=== PATIENT | female | born 1950 | race Native Hawaiian/Other Pacific Islander ===

== ENCOUNTER 2024-07-09 09:15 | Outpatient (AMB) | payer MEDICARE, SELFPAY ==
--- NOTE | 2024-07-09 09:22 | A.OFFVIS_ITS ---
Vital Signs 07/09/24 09:27 Height 5 ft Weight 119 lb BMI 23.2 BP 149/69 H Blood Pressure Location Rt brachial Position Sitting Pulse 88 Pulse Source Pulse Oximeter Pulse Oximetry (%) 97 Oxygen Delivery Method Room Air Intake Visit Reasons: Chronic left-sided low back pain/natasha from 06/25 Intake Note: Pain today 12/23 Critical Care Registered Nurse Required: No Accompanied by: Daughter Allergies latex Allergy (Unknown, Verified 07/09/24 09:27) Rash HPI Comments Details: Neha Ford (Riki) is very pleasant 73 years old female who presents in my office with complains on pain in lower back with radiation down to the left lower extremity. She reports that pain is aggravated by standing and alleviated by sitting and laying down. She reports that the pain started in October of 2023. She denies inciting events. She can sleep normally she can do activities of daily living, she can take care of herself and she can function normally. She is retired individual. Heat applications and movements aggravate her pain. Topical medications and oral medications make her pain better. The pain is most severe in the morning and at night. She reports that when she gets up from the bed she feels severe pain in the leg and unable to support her weight on the left lower extremity. In terms of tissue damage he reports her pain as pulsing, throbbing, pounding. She had 12 sessions of physical therapy in [place], [place] she continues home exercise program. She reports minimal and short-lived pain from physical therapy. She also has massage it local [place] with minimal improvement. She is taking Tylenol 1300 mg in the a.m. and p.m., she takes [facility] lidocaine as needed. She had MRI of the lumbar spine results of which dictated as below. She never had any injections. Her past medical history significant for hypertension and type 2 diabetes. Her past surgical history significant for cataract surgery. She is retired individual she denies smoking cigarettes does not drink alcohol drinks coffee and she denies recreational drugs. Review of Systems Const Reports no additional complaints Eyes Reports no additional complaints ENT Reports Normal hearing present Card Reports no additional complaints Resp Reports no additional complaints GI Reports no additional complaints Reports no additional complaints Musc Reports as per HPI Neuro Reports Normal hearing present, Denies Abnormal speech present and Denies Sensory deficit (Neuro) Physical Exam Vital Signs: Last Vital Signs Pulse 88 07/09/24 09:27 BP 149/69 H 07/09/24 09:27 Pulse Ox 97 07/09/24 09:27 Oxygen Delivery Method Room Air 07/09/24 09:27 BMI result Body Mass Index 23.2 Const General: no acute distress Nutritional Appearance: thin Orientation/consciousness: patient oriented x3 Limitations: no limitations Eyes General: appearance normal, both eyes and all related structures Pupils: Equal, round and reactive pupils present EOM: EOMs intact bilaterally Neck Neck: Yes full ROM Chest Chest palpation & inspection: normal inspection of the chest Resp Effort & Inspection: normal respiratory effort, able to speak in complete sentences, normal respiratory pattern, no audible wheezes and no cough Cardio Jugular venous distension: no JVD GI Inspection: Yes normal to inspection Back/Spine/Pelvis Other: She is able to stand on bilateral tiptoes and bilateral heels however she is not able to lift the large toe bilaterally in separation from the rest of the toes. Flexing forward and flexing backwards equally aggravate her pain. Sitting alleviate her pain. Valsalva maneuver aggravates her pain. SLR is positive bilaterally,Lassegue test is positive on the left. Alfredo test is negative bilaterally. Pelvic compression test is negative bilaterally. Loading test is positive bilaterally more significantly on the left. Neuro General: patient oriented x3 and gait normal Cranial nerves: Yes CN's II-XII intact bilaterally, Yes Equal, round and r eactive pupils present, Yes Normal hearing present and Yes Ability to bilaterally elevate shoulders present Speech: No Abnormal speech present Gait exam (Neuro): Normal gait present Motor exam (neuro): 5/5 motor strength present throughout Sensory Exam: No Sensory deficit (Neuro) Extrem General: No pedal edema Psych Speech and movement: Normal speech and movement present Affect: normal affect Attitude: cooperative Thought process: Normal thought process present Thought content: Normal thought content present Insight: Good insight present (Psych) Judgement: Good judgement present (Psych) Results Reviewed Results Reviewed: MRI lumbar spine 03/22/2024. Degenerative anterolisthesis of L4 on L5 measures 6 mm. Minimal retrolisthesis of L1 on L2, L2 on L3, L3 on L4. The lumbar vertebral bodies are normal in height. Severe loss of height at L5-S1 with marginal spurring and vacuum disc phenomenon. By loss of height at L4-5. Marginal osteophytes and facet arthrosis are present at multiple levels. The visualized lower thoracic cord is unremarkable and conus terminates at L2. Fatty atrophy of the posterior paraspinal musculature no acute retroperitoneal abnormality. L1-L2: Anterior disc osteophyte complex. No significant central canal or foraminal narrowing. L2-L3: Mild concentric disc bulge facet arthrosis and no significant central canal narrowing. Mild foraminal narrowing. L3-L4: Mild broad-based posterior disc bulge, facet arthrosis, and ligamentum flavum infolding. Minimal central canal narrowing. Mild right and mild to mild/moderate left foraminal narrowing. L4-5: Degenerative anterolisthesis, facet arthrosis, ligamentum flavum thickening. Marked central canal stenosis with compression of the traversing right L5 nerve roots. Crowding of the and probable compression of the left L5 nerve root. Moderate to severe bilateral foraminal narrowing with crowding of the exiting L4 nerve roots. L5-S1: Concentric disc osteophyte complex, facet arthrosis, and mild central canal narrowing. Left subarticular recess narrowing with crowding of the left S1 nerve roots. Severe bilateral foraminal narrowing. Nuñez of the left L5 nerve root and possible compression of the right L5 nerve root. Assessment & Plan Assessment & Plan (1) Spondylosis of lumbar spine: Code(s): M47.816 - Spondylosis without myelopathy or radiculopathy, lumbar region Category: Medical (2) Disc degeneration, lumbar: Code(s): M51.369 - Other intervertebral disc degeneration, lumbar region without mention of lumbar back pain or lower extremity pain Category: Medical (3) Chronic pain syndrome: Code(s): G89.4 - Chronic pain syndrome Category: Medical (4) Radiculopathy, lumbar region: Code(s): M54.16 - Radiculopathy, lumbar region Category: Medical Plan Very impressive MRI description which make me think about radiculopathy in combination of physical exam which demonstrates relative weakness of the left lower extremity. I offered this patient left L4-5 L5-S1 transforaminal epidural steroid injection. I will evaluate the patient 1 month after the procedure, earlier if she wishes to. Very prominent signs of facet arthropathy which also correspond to MRI findings. If the transforaminal epidural steroid injection will not be working I will be willing to perform L2, L3, L4, L5 left-sided medial branch block. Patient Instructions: I here by testify that I spent 46 minutes in conversation with this patient as well as evaluating her prior records and diagnostic studies as well as planning her care and organizing this note. Coding Level of Care Code New Pt Level 4 (44432) Diagnoses Spondylosis of lumbar spine M47.816 Disc degeneration, lumbar M51.369 Chronic pain syndrome G89.4 Radiculopathy, lumbar region M54.16
[2024-07-09 09:27] VITALS: BP 149/69; PULSE 88; O2SAT 97; BMI 23.2
--- OUTSIDE RECORDS SUMMARY | 2024-07-09 09:54 | XMS_ITS | Clinical Summary ---
Author Organization [employer] Address [address] [place] [address] [address] [place] [address] Care Team Providers Care Windows Software Developer Name Role Phone Cristiana Slade RN Unavailable Lolis Torres NP Primary Care Provider [phone] Allergies Active Allergy Reactions Criticality Noted Date Comments Latex Rash High 10/21/2022 Medications atorvastatin (Lipitor) 80 MG tablet 3 Active Lancets (OneTouch Delica Plus [id number]) misc 3 Active omeprazole (PriLOSEC) [address] capsuleIndication s:Gastroesophagea l Reflux Disease Take 20 mg by mouth before breakfast. Do not crush or chew. Active fluticasone (Flonase) 50 MCG/ACT nasal sprayIndications: Allergic Rhinitis Administer 1 spray into each nostril in the morning. Shake gently. Before first use, prime pump. After use, clean tip and replace cap. Active meclizine (Antivert) 25 MG tabletIndications :Vertigo Take 25 mg by mouth if needed in the morning, at noon, and at bedtime for nausea. Active citalopram (CeleXA) 20 MG tablet Take 20 mg by mouth in the morning. 3 Active amLODIPine (Norvasc) 5 MG tabletIndications :Primary hypertension Take 1 tablet (5 mg) by mouth at bedtime. 90 tablet 3 4 Active losartan (Cozaar) 100 MG tabletIndications :Primary hypertension Take 1 tablet (100 mg) by mouth at bedtime. 90 tablet 3 4 Active Elastic Bandages & Supports (Wrist Brace/Left Small) misc 1 Units Once daily. 1 each 4 Active Diclofenac Sodium 1 % gelIndications:De Quervain's tenosynovitis, left,Epicondyliti s, lateral, left,Epicondyliti s elbow, medial, left APPLY 2 G TOPICALLY IF NEEDED IN THE MORNING AND AT BEDTIME (PAIN). 100 g 1 4 Active glucose blood (OneTouch Verio) test strip CHECK SUGARS ONCE DAILY 100 strip 2 4 Active Continuous Glucose Mine Inspector (Dexcom G7 Mine Inspector) deviceIndications :Type 2 diabetes mellitus with hyperglycemia, with long-term current use of insulin (CMS/[facility]ER[facility]),Hypogly cemia 1 Units Once per day. 1 each 4 Active Continuous Glucose Sensor (Dexcom G7 Sensor) miscIndications:T ype 2 diabetes mellitus with hyperglycemia, with long-term current use of insulin (CMS/[facility]ER[facility]),Hypogly cemia 1 Units Once per day. 3 each 11 4 Active betamethasone dipropionate (Diprosone) 0.05 % lotion Apply topically 2 times daily. 15 g 4 Active Lantus SoloStar 100 UNIT/ML pen Inject 35 Units under the skin at bedtime. 12 mL 11 4 Active metFORMIN (Glucophage) 1000 MG tabletIndications :Type 2 diabetes mellitus with hyperglycemia, with long-term current use of insulin ([facility]) TAKE 1 TABLET (1000 MG) BY MOUTH WITH BREAKFAST AND WITH EVENING MEAL 180 tablet 1 4 Active insulin pen needle (BD Pen Needle Faith U/F) 32G x 4 mm misc Inject under the skin 2 times daily. Use 2 times daily 100 each 3 4 Active albuterol 108 (90 Base) MCG/ACT inhaler Inhale 2 puffs every 6 (six) hours if needed for wheezing. 18 g 11 4 05/01/20 25 Active Active Problems Problem Noted Date Diagnosed Date Mild intermittent asthma without complication Assessment & Plan (05/01/2024 10:23 AM EST): - History of asthma, currently well-managed. - Refill albuterol inhaler as needed. Murmur 05/01/2024 Assessment & Plan (05/01/2024 10:26 AM EST): - Possible heart murmur detected, family history of heart disease. - Order an echocardiogram to evaluate heart function. Recurrent major depressive disorder, in partial remission 05/01/2024 Assessment & Plan (05/01/2024 10:25 AM EST): - History of depression and anxiety, currently managed with citalopram. - Continue current medication regimen. Monthly consultations with a psychiatrist. Chronic left-sided low back pain with left-sided sciatica 03/27/2024 Assessment & Plan (06/12/2024 11:40 AM EST): - Degenerative changes, canal stenosis, and nerve compression noted on imaging. -no improvement with Physical therapy -continue taking Tylenol 1000mg BID -will refer to pain specialist to consider injection therapy Assessment & Plan (05/01/2024 10:26 AM EST): - Degenerative changes, canal stenosis, and nerve compression noted on imaging. Physical therapy recommended. - Continue physical therapy. If no improvement after 2-4 sessions, consider consulting a emergency medicine specialist. Follow-up in six weeks to reassess. Varicose veins of calf 03/27/2024 Stress incontinence of urine 03/01/2024 Assessment & Plan (05/01/2024 10:26 AM EST): - Difficulty controlling urination. - Appointment with Urology on May 14, 2024. Continue pelvic floor exercises. Hypercalcemia 07/20/2023 Seasonal allergies 07/19/2023 Arthralgia of left temporomandibular joint 07/18 Assessment & Plan (07/19/2023 10:45 AM EST): Advised to follow up with dental for denture fitting adjustment. Type 2 diabetes mellitus wit h hyperglycemia, with long-term current use of insulin 09/11/2022 Overview (05/01/2024): A1C trend: Feb 2024: 7.4 Meds: Levemir and Metformin, Losartan and Atorvastatin Jardiance too expensive. Will try to prescribe in 2024 Assessment & Plan (06/12/2024 12:40 PM EST): Reports BS fluctuations: highs in the 300s after meals, followed by lows in the 70s. Seeing Cristiana Slade for dietary management Will recheck A1C ahead of DM educator visit, consider trying Jardiance again. F/U in July before planned trip to the [facility] Assessment & Plan (05/01/2024 10:27 AM EST): - Blood sugar levels improved, A1C at 7.4% in February 2023. On insulin (Lantus) and metformin. - Continue current medication regimen. Follow-up with DM Ed as scheduled in June 2023. - Presence of a bunion on the left foot. - Wear comfortable, wide shoes. Consider consulting a word processing supervisor for a bunion corrector if needed. Assessment & Plan (04/23/2024 9:55 AM EST): Continue Levemir (Lantus starting 2024) 30 units every am. Carry protein bar to have when out to prevent lows if late for a meal [facility] See goals Assessment & Plan (03/05/2024 1:21 PM EDT): Decrease Levemir to 30units every am and take before breakfast to prevent forgetting it and lows mid afternoon and evening Labs tomorrow, will fast for Lipids See lifestyle goals Assessment & Plan (01/23/2024 11:30 AM EDT): Change breakfast to include some more fiber, protein and fat Start to look at what foods are causing glucose to rise and try to adjust by decreasing or changing types of carb to higher fiber and adding protein Also try a walk 30 minutes after eating. Assessment & Plan (12/12/2023 5:00 PM EDT): Move Lantus to morning and decrease to 32 units daily. Give 5 units tonight and then tomorrow morning take 32 units. Return to set up phone bud today with assistance from [employer] food, observe what foods are causing rises after meals and adjust if possible foods. Return to review food along with Dexcom data with Cristiana Assessment & Plan (11/29/2023 10:57 AM EDT): Continue Lantus 35 units at bedtime Change Metformin to XR 500mg tabs, 3 tabs with dinner Dexcom G7 started today, change every 10 days Move injection sties and start doing airshot See goals. Assessment & Plan (07/19/2023 10:45 AM EST): Needs bloodwork. Will get it today. Continue with current regimen. Primary hypertension 09/11/2022 Assessment & Plan (05/01/2024 10:24 AM EST): - Blood pressure well-controlled with amlodipine 5 mg and losartan 100 mg. - Continue current medication regimen. Assessment & Plan (07/19/2023 10:45 AM EST): Uncontrolled. Will add amlodipine to her regimen. She will start taking them both at night. Gastroesophageal reflux disease without esophagi tis 09/11/2022 Mixed hyperlipidemia 09/11/2022 Current moderate episode of major depressive disorder without prior episode 09/11/2022 Encounters Date Type Department Care Team Description 07/07/[address] [phone] Hill Van MD Primary hypertension 07/02/[address] [phone] Hill Van MD 06/12/2024 9:20 AM EST Office Visit [address] [phone] Lolis Torres NP Chronic left-sided low back pain with left-sided sciatica (Primary Dx); Type 2 diabetes mellitus with hyperglycemia, with long-term current use of insulin ([facility]) 05/01/2024 9:20 AM EST Office Visit [address] [phone] Lolis Torres, ALICJA Chronic left-sided low back pain with left-sided sciatica (Primary Dx); Stress incontinence of urine; Primary hypertension; Type 2 diabetes mellitus with hyperglycemia, with long-term current use of insulin ([facility]); Mild intermittent asthma without complication; Murmur; Recurrent major depressive disorder, in partial remission ([facility]) 04/26/[address] [address] Hill Van MD 04/23/2024 9:00 AM EST Clinical Support [address] [phone] Cristiana Slade RN Type 2 diabetes mellitus with hyperglycemia, with long-term current use of insulin ([facility]) 04/22/[address] [phone] Hill aVn MD from Last 3 Months Immunizations Name Administration Dates Next Due Influenza Quadrivalent Adjuvanted 03/26/2023 Influenza, High Dose Seasonal, Preservative Free 03/13/2024 Moderna Covid-19 Vaccine 12+ 03/13/2024 Family History Medical History Relation Name Comments Asthma Father Chronic kidney disease Mother Hypertension Mother Heart transplant Sister Relation Name Status Comments Father Mother Sister Social History Tobacco Use Types Packs/Day Years Used Date Smoking Tobacco: Never Smokeless Tobacco: Never Tobacco Cessation:Counseling Given: Not Answered Alcohol Use Standard Drinks/Week Comments Never 0 (1 standard drink = 0.6 oz pur e alcohol) Alcohol Answer Date Recorded How often do you have a drink containing alcohol ? 0 07/19/2023 How many drinks containing a lcohol do you have on a typical day when you are drinking? 0 07/19/2023 How often do you have six or more drinks on one occasion? 0 07/19/2023 Housing Stability Answer Date Recorded What is your housing situation today? I have geovani nielson 03/27/[address] you li ve. Do you have problems with any of the following? None of the above 03/27/2024 Food Insecurity Answer Date Recorded Within the past 12 months, y ou worried that your food would run out before you got money to buy more: Never True 03/27/2024 Within the past 12 months,th e food you bought just didn't last and you didn't have enough money to get more: Never True 04/2024 Transportation Answer Date Recorded In the past 12 months, has l ack of transportation kept you from medical appts, meetings, work or from getting things needed for daily living? No 03/27/2024 Intimate Partner Violence Answer Date R ecorded Within the last year, have y ou been afraid of your partner or ex-partner? 2 07/19/2023 Within the last year, have y ou been humiliated or emotionally abused in other ways by your partner or ex-partner? 2 Within the last year, have y ou been kicked, hit, slapped, or otherwise physically hurt by your partner or ex-partner? 2 07/19/2023 Within the last year, have y ou been raped or forced to have any kind of sexual activity by your partner or ex-partner? 2 07/19/2023 Utilities Answer Date Recorded In the past 12 months, has t he [employer], gas, oil or water [employer] threatened to shut off services in your home? No 03/27/2024 Depression Answer Date Recorded Patient Health Questionnaire-2 Score 0 03/27/2024 Internet Access Answer Date Recorded Internet Access Q1 Yes 03/27/2024 Internet Access Q2 Not on file 03/27/2024 Comments No Sex and Gender Information Value Date Recorded Sex Assigned at Female 07/14/2022 1:02 PM EST Legal Sex Female 12:52 PM EST Gender Identity Female 07/14/2022 1:02 PM EST Sexual Orientation Straight 07/14/2022 1: 02 PM EST Last Filed Vital Signs Vital Sign Reading Time Taken Comments Blood Pressure 125/65 06/12/2024 9:40 AM EST Pulse 84 06/12/2024 9:40 AM EST Temperature 35.9 ??C (96.7 ??F) 06/12/2024 9:40 AM ES T Respiratory Rate - - Oxygen Saturation 96% 06/12/2024 9:40 AM EST Inhaled Oxygen Concentration - - Weight 53.4 kg (117 lb 12.8 oz) 06/12/2024 9:40 AM EST Height 150.2 cm (4' 11.13 ) 06/12/2024 9:40 AM Natalia ALEXANDRA Body Mass Index 23.69 06/12/2024 9:40 AM EST Plan of Treatment Upcoming Encounters Date Type Department Care Team (Late st Contact Info) Description 08/07/2024 10:00 AM EDT Office Visit [facility] [address] [place] [phone] Lolis Torres NP [address] [place] [address] Health Maintenance Due Date Last Done Comments CT Colonography 1949 Colonoscopy 1949 Colorectal Cancer Screening 1949 FIT DNA/Cologuard 1949 FIT 1949 FOBT 1950 Sigmoidoscopy 1949 Diabetes: Foot Exam 12/14/1959 Hepatitis C Screening 12/14/1967 DTaP/Tdap/Td Vaccines (1 - Tdap) 1968 Pneumococcal Vaccine: 50+ Years (1 of 2 - PCV) 1968 Zoster Vaccines (1 of 2) 12/14/1999 RSV Patients and Patients Aged 60 years or older (1 - Risk 60-74 years 1-dose series) 2009 Alcohol/Substance Use Screening 07/18/2024 07/19/2023 Diabetes: Hemoglobin A1C 09/18/2024 02 025, 03/06/2024, 11/11/2023, Additional history exists Eye Exam 10/04/2024 10/05/2023 Diabetes: Urine Protein Screening 01/22/2025 01/23/2024, 09/06/2022 Lipid Panel 03/06/2025 03/06/2024, 04/0 09/2023, 07/19/2023, Additional history exists Depression Screening 03/27/2025 03/27/2024, 03/27/20 SDOH Screening 03/27/2025 03/27/2024 Tobacco Screening 05/01/2025 05/01/2024 Mammogram 11/09/2025 11/10/2023 COVID-19 Vaccine Completed 03/13/2024, 03/26/2023 Influenza Vaccine Completed 03/13/2024, 03/26/2023 HIB Vaccines Aged Out No longer eligi ble based on patient's age to complete this topic HPV Vaccines Aged Out No longer eligi ble based on patient's age to complete this topic Hepatitis A Vaccines Aged Out No long er eligible based on patient's age to complete this topic Hepatitis B Vaccines Aged Out No long er eligible based on patient's age to complete this topic IPV Vaccines Aged Out No longer eligi ble based on patient's age to complete this topic Meningococcal Vaccine Aged Out No winnie maría elena eligible based on patient's age to complete this topic RSV under 20 months Aged Out No longe r eligible based on patient's age to complete this topic Rotavirus Vaccines Aged Out No longer eligible based on patient's age to complete this topic Procedures Procedure Name Priority Date/Time Associated Diagnosis Comments COMPREHENSIVE METABOLIC PANEL Routine 06/21/2024 12:00 AM EST Type 2 diabetes mellitus with hyperglycemia, with long-term current use of insulin (CMS/HCC) CBC Routine 06/21/2024 12:00 AM EST Type 2 diabetes mellitus with hyperglycemia, with long-term current use of insulin (CMS/HCC) HEMOGLOBIN A1C Routine 06/21/2024 12:00 AM EST Type 2 diabetes mellitus with hyperglycemia, with long-term current use of insulin (CMS/HCC) AMB REFERRAL TO PHYSICAL THERAPY Routine 06/12/2024 Chronic left-sided low back pain with left-sided sciatica LIPID PANEL WITH REFLEX TO DIRECT LDL Routine 03/06/2024 8:03 AM EDT Type 2 diabetes mellitus with hyperglycemia, with long-term current use of insulin (CMS/HCC) ALBUMIN, RANDOM URINE W/CREATININE Routine 01/23/2024 11:41 AM EDT Type 2 diabetes mellitus with hyperglycemia, with long-term current use of insulin (CMS/HCC) BI MAMMOGRAM SCREENING TOMOSYNTHESIS BILATERAL Routine 11/10/2023 9:21 AM EDT HM DIABETES EYE EXAM Routine 10/05/2023 10:11 AM EDT from Last 3 Months or Most Recently Relevant to Health Maintenance Results * (ABNORMAL) CBC (06/21/2024 12:00 AM EST) [facility] White Blood Cell Count 4.9 3.8 - 10.8 Thousand/ uL [employer] [place] [facility] Red Blood Cell Count 4.62 3.80 - 5.10 Million/u L [facility] [place] [facility] Hemoglobin 13.1 11.7 - 15.5 g/dL [facility] [place] [facility] Hematocrit 41.4 35.0 - 45.0 % [facility] [facility] MCV 89.6 80.0 - 100.0 fL [facility] [place] [facility] MCH 28.4 27.0 - 33.0 pg [facility] [place] [facility] MCHC 31.6(L) 32.0 - 36.0 g/dL [facility] [place] [facility] Comment: For adults, a slight decrease in the calculated MCHC value (in the range of 30 to 32 g/dL) is most likely not clinically significant; however, it should be interpreted with caution in correlation with other red cell parameters and the patient's clinical condition. RDW 13.2 11.0 - 15.0 % [facility] [place] [facility] Platelet Count 268 140 - 400 Thousand/ uL [facility] MPV 9.8 7.5 - 12.5 fL [facility] Blood Venous blood specimen / Unknown 06/21/2024 06/22/2024 12:26 AM EST us Lolis Torres NP LAB BLOOD ORDERABLES Final Resul t [facility] [address], [place] [address] [facility] [place] [facility] [address] [place] [phone] * (ABNORMAL) Hemoglobin A1c (06/21/2024 12:00 AM EST) [facility] Hemoglobin A1c 7.5(H) <5.7 % of total Hgb [facility] [place] [facility] Comment: For someone without known diabetes, a hemoglobin A1c value of 6.5% or greater indicates that they may have diabetes and this should be confirmed with a follow-up test. For someone with known diabetes, a value <7% indicates that their diabetes is well controlled and a value greater than or equal to 7% indicates suboptimal control. A1c targets should be individualized based on duration of diabetes, age, comorbid conditions, and other considerations. Currently, no consensus exists regarding use of hemoglobin A1c for diagnosis of diabetes for children. ?? Blood Venous blood specimen / Unknown 06/21/2024 06/22/2024 12:26 AM EST Lolis Torres NP LAB BLOOD ORDERABLES Final Resul t [facility] [address], [place] [address] [facility] [address] [place] [phone] * (ABNORMAL) Comprehensive Metabolic Panel (06/21/2024 12:00 AM EST) Glucose 143(H) 65 - 99 mg/dL [facility] Comment: ? Fasting reference interval For someone without known diabetes, a glucose value >125 mg/dL indicates that they may have diabetes and this should be confirmed with a follow-up test. Urea Nitrogen (BUN) 14 7 - 25 mg/dL [facility] Creatinine, Serum 0.61 0.60 - 1.00 mg/dL [facility] eGFR 94 > OR = 60 mL/min/1. 73m2 [facility] [place] [facility] BUN/Creatinine Ratio SEE NOTE: 6 - 22 (calc) [facility] Comment: ?? Not Reported: BUN and Creatinine are within ?? reference range. ? Sodium 139 135 - 146 mmol/L [facility] Potassium 4.6 3.5 - 5.3 mmol/L [place] Chloride 101 98 - 110 mmol/L [facility] Carbon Dioxide 32 20 - 32 mmol/L [facility] Calcium 10.0 8.6 - 10.4 mg/dL [facility] [place] [facility] Protein, Total 7.2 6.1 - 8.1 g/dL [facility] Albumin 4.5 3.6 - 5.1 g/dL [facility] [employer] [facility] Globulin 2.7 1.9 - 3.7 g/dL (calc) [facility] Albumin/Globuli n Ratio 1.7 1.0 - 2.5 (calc) [facility] Bilirubin, Total 0.7 0.2 - 1.2 mg/dL [facility] Alkaline Phosphatase 51 37 - 153 U/L [facility] AST 18 10 - 35 U/L [facility] ALT 13 6 - 29 U/L [facility] Blood Venous blood specimen / Unknown 06/21/2024 06/22/2024 12:26 AM EST Lolis Torres NP LAB BLOOD ORDERABLES Final Resul t [facility] [address], [place] [address] [facility] [address] [place] [address] * Referral to Physical Therapy (06/12/2024) Hill Van MD OUTPATIENT REFERRAL ORDERABLES Edited Result - Final * (ABNORMAL) Lipid Panel with Reflex to Direct LDL (03/06/2024 8:03 AM EDT) Cholesterol, Total 114 <200 mg/dL [facility] HDL Cholesterol 47(L) > OR = 50 mg/dL [facility] Triglycerides 84 <150 mg/dL [facility] LDL Cholesterol 51 mg/dL [employer] [place] [facility] Comment: Reference range: <100 Desirable range <100 mg/dL for primary prevention; ?? <70 mg/dL for patients with CHD or diabetic patients with > or = 2 CHD risk factors. LDL-C is now calculated using the Michael calculation, which is a validated novel method providing better accuracy than the Friedewald equation in the estimation of LDL-C. Neo PINK et al. JOE. 2013;310(19): 3201-1170 (http://education.[employer]faq/YKZ382) Chol/HDLC Ratio 2.4 <5.0 (calc) [facility] Non-HDL Cholesterol 67 <130 mg/dL [facility] [place] [facility] Comment: For patients with diabetes plus 1 major ASCVD risk factor, treating to a non-HDL-C goal of <100 mg/dL (LDL-C of <70 mg/dL) is considered a therapeutic option. Blood 03/06/2024 8:03 AM EDT 03/06/2024 8:04 AM EDT Narrative [facility] - 03/07/2024 6:44 AM EDT FASTING:YES FASTING: YES us Hill Van MD LAB BLOOD ORDERABLES Final Res ult [facility] [address] [place] [address] [facility] [place] [facility] [address] [place] [address] * (ABNORMAL) Albumin, Random Urine W/Creatinine (01/23/2024 11:41 AM EDT) Creatinine, Random Urine 35 20 - 275 mg/dL [facility] [place] [facility] Albumin, Urine 1.3 See Note: mg/dL [facility] [place] [facility] Comment: Reference Range: Reference Range Not established Albumin/Creatinin e Ratio, Random Urine 37(H) <30 mg/g creat [facility] [place] [facility] Comment: The ADA defines abnormalities in albumin excretion as follows: Albuminuria Category ?Result (mg/g creatinine) Normal to Mildly increased ?? <30 Moderately increased ? 30-299 Severely increased ? > OR = 300 The ADA recommends that at least two of three specimens collected within a 3-6 month period be abnormal before considering a patient to be within a diagnostic category. Urine (Urine, Random) 01/23/2024 11:41 AM EDT 01/23/2024 11:41 AM EDT Narrative [facility] - 01/24/2024 3:59 PM EDT FASTING:UNKNOWN FASTING: UNKNOWN Hill Van MD LAB URINE ORDERABLES Final Res ult [facility] [address] [facility], [place] [address] [facility] [address] [place] [address] * BI Mammogram Screening Tomosynthesis Bilateral (11/10/2023 9:21 AM EDT) Anatomical Region Laterality Modality Breast Bilateral Mammography 11/10/2023 9:21 AM EDT Narrative 11/10/2023 12:53 PM EDT PROCEDURE: MM Digital Mammo Screening INDICATION: Screening for breast cancer. COMPARISON: None TECHNIQUE: Full-field digital CC and MLO 3D tomosynthesis images of both breasts were acquired. Computer-aided detection (CAD) was utilized in the interpretation of this study. DENSITY: The breast tissue is heterogeneously dense, which may obscure small masses. FINDINGS: No suspicious masses, suspicious microcalcifications, or areas of architectural distortion are seen in either breast to suggest malignancy. IMPRESSION: No mammographic evidence of malignancy. RECOMMENDATION: Annual mammographic screening BI-RADS: 1 (Negative) Lay letter mailed to patient WSN: [id number] Ordering Physician: Hill Van Dictated By: ?Maxx Rodrigues MD Dictated Date/Time: ?11/10/23 12:50 pm Reviewed By: ?Maxx Rodrigues MD Signed By: ? Maxx Rodrigues MD Signed Date/Time: ? 11/10/23 12:50 pm Transcribed By: ? CSB Crm Consultant Date/Time: ? 11/10/23 12:48 pm Birads: Procedure Note Donwaqas, Image - 11/10/2023 PROCEDURE: MM Digital Mammo Screening INDICATION: Screening for breast cancer. COMPARISON: None TECHNIQUE: Full-field digital CC and MLO 3D tomosynthesis images of bothbreasts were acquired. Computer-aided detection (CAD) was utilized in theinterpretation of this study. DENSITY: The breast tissue is heterogeneously dense, which may obscuresmall masses. FINDINGS: No suspicious masses, suspicious microcalcifications, or areasof architectural distortion are seen in either breast to suggestmalignancy. IMPRESSION: No mammographic evidence of malignancy. RECOMMENDATION: Annual mammographic screening BI-RADS: 1 (Negative) Lay letter mailed to patient WSN: [id number] Ordering Physician: Hill Van Dictated By: Maxx Rodrigues MD Dictated Date/Time: 11/10/23 12:50 pm Reviewed By: Maxx Rodrigues MD Signed By: Maxx Rodrigues MD Signed Date/Time: 11/10/23 12:50 pm Transcribed By: CSB Crm Consultant Date/Time: 11/10/23 12:48 pm Birads: us Hill Van MD IMG BI PROCEDURES Final Result * Diabetes Eye Exam (10/05/2023 10:11 AM EDT) us Not In System Provider HEALTH MAINTENANCE Final Result from Last 3 Months or Most Recently Relevant to Health Maintenance Insurance MEDICARE ADVANTAGE Care Teams Windows Software Developer Relationship Specialty Start Date End Date Lolis Torres NP [address] [place] [address] PCP - General Family Medicine 05/01/24 Cristiana Slade, RN [address] [place] [address] Inserting Press Operator 12/12/23
--- OUTSIDE RECORDS SUMMARY | 2024-07-09 09:54 | XMS_ITS | Encounter Summary ---
Author Organization [employer] Address [address] [facility] 7 [place] [address] Care Team Providers Care Territory Outside Sales Manager Name Role Phone Cristiana Slade RN Unavailable Lolsi Torres NP Primary Care Provider Reason for Visit * Reason Comments Med Refill Encounter Details Date Type Department Care Team ([facility] st Contact Info) Description 07/02/2024 [facility]ill [facility] [address] [place] [phone] Hill Van MD [address] [place] [phone] Social History Tobacco Use Types Packs/Day Years Used Date Smoking Tobacco: Never Smokeless Tobacco: Never Alcohol Use Standard Drinks/Week Comments Never 0 [...] the past 12 months, has t he electric, gas, oil or water company threatened to shut off services in your [...] Orientation Straight 07/14/2022 1: 02 PM EST documented as of this encounter Plan of Treatment Upcoming Encounters Date Type Department Care Team (Late st Contact Info) Description 08/07/2024 10:00 AM EDT Office [facility] [address] [place] [phone] Lolis Torres NP [address] [place] [address] documented as of this encounter Visit Diagnoses Not on filedocumented in this encounter Care Teams Territory Outside Sales Manager Relationship Specialty Start Date End Date Lolis Torres NP [address] [place] [address] PCP - General Family Medicine 05/01/24 Cristiana Slade RN [address] [place] [phone] After School Program Director 12/12/23 documented as of this encounter
--- OUTSIDE RECORDS SUMMARY | 2024-07-09 09:54 | XMS_ITS | Encounter Summary ---
Author Organization [employer] Address [address] [facility] 7t [place] [address] Care Team Providers Care First Officer And Flight Instructor Name Role Phone Hill Van MD Primary Care Provider [phone] Cristiana Slade RN Unavailable Lolis Torres NP Primary Care Provider [phone] Encounter Details Date Type Department Care Team (Late st Contact Info) Description 04/26/[address] [address] Hill Van MD [address] [place] [phone] Social History Tobacco Use Types Packs/Day Years [...] the past 12 months, has t he [employer], oil or water company threatened to shut [...] PM EST documented as of this encounter Miscellaneous Notes * Telephone Encounter - Deanna Pringle - 05/01/2024 2:05 PM EST faxed * Telephone Encounter - Ting Oconnell - 04/26/2024 2:17 PM EST Jes called from [facility] asking for us to fax over the most recent MRI of back to [phone] documented in this encounter Plan of Treatment Upcoming Encounters Date Type Department Care Team (Late st Contact Info) Description 08/07/2024 10:00 AM EDT Office Visit [facility] [address] [place] [phone] Lolis Torres NP [address] [place] [phone] documented as of this encounter Visit Diagnoses Not on filedocumented in this encounter Care Teams First Officer And Flight Instructor Relationship Specialty Start Date End Date Hill Van MD PCP - General Internal Medicine 08/23/23 04/30/24 Lolis Torres NP [address] [place] [address] PCP - General Family Medicine 05/01/24 Cristiana Slade RN [address] [place] [phone] Magnetometer Operator 12/12/23 documented as of this encounter
--- OUTSIDE RECORDS SUMMARY | 2024-07-09 09:54 | XMS_ITS | Encounter Summary ---
Author Organization [employer] Address [address] [place] [address] Care Team Providers Care Cardiology Nurse Name Role Phone Hill Van MD Primary Care Provider [phone] Cristiana Slade RN Unavailable Lolis Chopra NP Primary Care Provider [phone] Reason for Referral * Social Care Application (Routine) - Authorized Specialty Diagnoses / Procedures Referred By Contac t Referred To Contact [facility] Diagnoses Type 2 diabetes mellitus with hyperglycemia, with long-term current use of insulin ([facility]) Hill Van MD Phone: tel: fax: [address] Phone: tel: fax: Referral ID Status Reason Start Date Expiration Date Visits Requested Visits Authorized [id number] Authorized Specialty Services Required 4 05/01/2025 6 6 Scheduling Instructions Please set up strength training. Reason for Visit * Reason Comments Diabetes Encounter Details Date Type Department Care Team (Latest Contact Info) Description 04/23/2024 9:00 AM EST Clinical Support [facility] [address] [place] [phone] Cristiana Slade, RN [address] [place] [phone] Type 2 diabetes mellitus with hyperglycemia, with long-term current use of insulin (CMS/HCC) Social History Tobacco Use Types Packs/Day Years [...] PM EST documented as of this encounter Progress Notes * Cristiana Slade RN - 04/23/2024 9:00 AM EST Patient Name: Neha Ford Patient : 1950 Visit Date: @ENCDATE@ Provider: Cristiana Slade RN Patient Visit Note History of Present Illness Neha is a 73 y.o. female who presents today for Chief Complaint Patient presents with Diabetes and the following history: Neha enters today stating her glucose is still going up after all meals especially breakfast. She made the changes to her diet as we discussed at our last visit. She is continuing to do her exercise. She states Levemir is changing at the beginning of the year to Lantus. She is not having as many lows as she was at our last visit. Current Medication: Metformin 500mg, 3 tabs with breakfast and insulin. Has to switch to Lantus in May. Due to formulary change. Only forgets insulin when it is late coming. Insulin Therapy: Current Insulin Regimen: Levemir 30 units in the am BG Monitoring: yes Times per day: 1 if sensor data questioned Low BG: yes, 4 in last week. She states it happen during day between meals How do you treat low glucose? Smarties or juice Can you tell when glucose is high: no 24 Hour Dietary Recall: Daughter states she can help improve breakfast as we discussed. Breakfast: 8am- fruit and 2 heaping tablespoons of plain Scottish yogurt with black berries, honey, peanut butter, avocado and apple with coffee and 1 egg or overnight oats, lisset seeds, honey and sometimes avocado with coffee and 1 egg, sometimes has eggs with fruit, toast and coffee. Lloyd with PB, fruit and coffee Snacks: none Lunch: 12p- egg and noodles, Pad Thia and sometimes has vegetables on the side. We discussed havingvegetables at every meal Snacks: none Dinner: 6 to 7pm- white long grain rice or 1/2 cup pasta, ground beef and broccoli Snacks: not usually unless she eats early. Will have warm milk with protein powder if going to bed later Drinks: 1 cup coffee in am, water Alcohol: never Who does meal preparation? self Food Shopping? daughter How many times per week do you eat out? 1 time per week Exercise: Current exercise: aerobics and Ana Type and amount: [employer], Day, Sat does Ana and And Tuesday goes to [facility] for aerobics Other activity: babysit's in the afternoon. Also does stretches in morning and before bed Sleep: not good unless she takes Tylenol PM so she takes it nightly. Showers before bed, Chamomile tea. Has a snack and usually watches TV because she can't sleep. Falls asleep late and then can sleep and can sleep leter in am. Eye exam current (within one year): yes yearly Foot care: cuts own toe nails, no issues Dental care: lower partial dentures and full dentures on top Objective There were no vitals taken for this visit. CGM use: yes, Dexcom G7 BG testing: Yes Times per day: 1 CGM download was reviewed, discussed with patient and scanned into the MR, 2 week CGM avg. Is 172 with a Standard Deviation of 62 70 to 180, 65% of time 181 to 250, 21% >250, 14% 70 to 54, 0% < 54, <1% Neha's glucose is slightly higher after meals although not consistently. Usually highest after breakfast but then random meals as well, most days has one meal that is in low 300's. We discussed amounts of food and the benefits of strength training. Lab Review Glucose (mg/dL) Date Value 03/06/2024 110 (H) 11/11/2023 115 (H) 08/19/2023 161 (H) Hemoglobin A1c (% of total Hgb) Date Value 03/06/2024 7.4 (H) 11/11/2023 8.1 (H) 08/19/2023 8.7 (H) Creatinine, Serum (mg/dL) Date Value 03/06/2024 0.70 11/11/2023 0.71 08/19/2023 0.66 Education & Counseling: Reviewed ABC's of diabetes care and management, Education on types of exercise and realistic exercise goals, Reviewed basic nutrition, healthy meal plan and realistic goalsetting, Reviewed insulin dosing, adjusting dose and glucose control., and effects on food, stress and grief on glucose as well as exercise and strength training Assessment/Plan Problem List Items Addressed This Visit Type 2 diabetes mellitus with hyperglycemia, with long-term current use of insulin ([facility]) Overview Jardiance too expensive. Will try to prescribe in 2024 Current Assessment & Plan Continue Levemir (Lantus starting 2024) 30 units every am. Carry protein bar to have when out to prevent lows if late for a meal [facility] for [facility] See goals Relevant Orders Hemoglobin A1c with Calculated Mean Plasma Glucose (MPG) Comprehensive Metabolic Panel CBC auto differential Referral to Diabetes Prevention Program New and updated patient goals are as follows: Carry a granola bar or protein bar to prevent low glucose is out running errands and late for a meal. Neha will move their injection sites to new areas, abdomen , using a grid formation, moving 1 inch from the last injection and across the site. Try to avoid switching side to side for each injection and avoid old injection sites for at least 2 months to allow areas to heal. Then can abdomen addback into site rotation. Neha will do air shot before each injection. Dial pen to 2 units with needle pointed up afterflicking pen to force air to move to top of pen. Then push plunger up. If good stream of insulin noted then proceed with dialing your dose and inject. If good stream not noted then dial 2 units againand push plunger. Repeat until good stream of insulin noted. Then dial dose and inject. Neha will continue to use the DexLikva G7 CGM, changing every 10 days or sooner as needed. Will do BG monitoring if sensor glucose does not match symptoms they are feeling or they are concerned with accuracy of sensor readings. They should also do a calibration using BG reading if it differs more than a few points from current sensor reading to give the sensor a point of reference. They do thisby entering current BG into sensor bud/experimental electronics developer as a calibration. Can call company if help needed with this issue or any other issue. [facility]. Add weights and yoga to exercise routine throughthe week: weights 3 times per day and yoga 1 to 2 times per week Change rice to long grain rice Try to get at least 3, 8oz glasses of water daily and more if can Continue current changes to breakfast Add side of vegetables to lunch every day Keep up the great job! Bring glucose meter and logs to all appointments No follow-ups on file. Future Appointments Date Time Provider Department Center 05/01/2024 9:20 AM Lolis Chpora NP [facility] 06/26/2024 9:00 AM Cristiana Slade RN [facility] Miscellaneous: Total visit time today with patient was 60 minutes spent on education and counseling . Cristiana Slade RN documented in this encounter Miscellaneous Notes * Assessment & Plan Note - Cristiana Slade RN - 04/23/2024 9:54 AM ESTAssociated Problem(s): Type 2 diabetes mellitus with hyperglycemia, with long-term current use of insulin ([facility]) Continue Levemir (Lantus starting 2024) 30 units every am. Carry protein bar to have when out to prevent lows if late for a meal Referral for [facility] for [facility] See goals * Addendum Note - Lolis Chopra NP - 04/23/2024 9:00 AM ESTAddended by: LOLIS CHOPRA on: 06/12/2024 10:18 AM Modules accepted: Orders documented in this encounter Plan of Treatment Upcoming Encounters Date Type Department Care Team (Late st Contact Info) Description 08/07/2024 10:00 AM EDT Office Visit [address] [phone] Lolis Chopra NP [address] [place] [phone] Scheduled Referrals Name Type Priority Associated Diagnoses Order Schedule Referral to Diabetes Prevention Program Outpatient Referral Routine Type 2 diabetes mellitus with hyperglycemia, with long-term current use of insulin ([facility]) Ordered: 04/23/2024 documented as of this encounter Visit Diagnoses Diagnosis Type 2 diabetes mellitus with hyperglycemia, with long-term current use of insulin ([facility]) documented in this encounter Care Teams Cardiology Nurse Relationship Specialty Start Date End Date Hill Van MD PCP - General Internal Medicine 08/23/23 04/30/24 Lolis Chopra NP [address] [place] [address] PCP - General Family Medicine 05/01/24 Cristiana Slade RN [address] [place] [phone] Nurse Technician 12/12/23 documented as of this encounter
--- OUTSIDE RECORDS SUMMARY | 2024-07-09 09:54 | XMS_ITS | Encounter Summary ---
Author Organization [employer] Address [address] [facility] 7 [place] [address] Care Team Providers Care Shot Peening Operator Name Role Phone Hill Van MD Primary Care Provider [phone] Cristiana Slade RN Unavailable Lolis Torres NP Primary Care Provider [phone] Encounter Details Date Type Department Care Team (Late st Contact Info) Description 11/18/2023 Orders Only [facility] [address] [place] [phone] Hill Van MD [address] [place] [phone] Type 2 diabetes mellitus with hyperglycemia, with long-term current use of insulin ([facility]) Social History Tobacco Use Types Packs/Day Years [...] housing situation today? I have geovani nielson 03/01/[address] you li ve. Do you have problems with any of the following? None of the above 03/01/2023 Food Insecurity Answer Date Recorded Within the past 12 months, y ou worried that your food would run out before you got money to buy more: Never True 03/01/2023 Within the past 12 months,th e food you bought just didn't last and you didn't have enough money to get more: Never True Transportation Answer Date Recorded In the past 12 months, has l ack of transportation kept you from medical appts, meetings, work or from getting things needed for daily living? No 03/01/2023 Intimate Partner Violence Answer Date R ecorded [...] the past 12 months, has t he [employer], gas, oil or water [employer] threatened to shut off services in your home? No 03/01/2023 Depression Answer Date Recorded Patient Health Questionnaire-2 Score 0 09/06/2022 Comments No Sex and Gender Information Value [...] 08/07/2024 10:00 AM EDT Office Visit [facility] [address] [place] [phone] Lolis Torres NP [address] [place], [place] [phone] documented as of this encounter Procedures Procedure Name Priority Date/Time Associated Diagnosis Comments ALBUMIN, RANDOM URINE W/CREATININE Routine 01/23/2024 11:41 AM EDT Type 2 diabetes mellitus with hyperglycemia, with long-term current use of insulin ([facility]) documented in this encounter Results * (ABNORMAL) Albumin, Random Urine W/Creatinine (01/23/2024 11:41 AM EDT) Creatinine, Random Urine 35 20 - 275 mg/dL [employer] Albumin, Urine 1.3 See Note: mg/dL [employer] Comment: Reference Range: Reference Range Not established Albumin/Creatinin e Ratio, Random Urine 37(H) <30 mg/g creat [employer] Comment: The ADA defines abnormalities in albumin [...] 01/24/2024 3:59 PM EDT FASTING:UNKNOWN FASTING: UNKNOWN us Hill Van MD LAB URINE ORDERABLES Final Res ult [facility] [address], [place] [address] [employer] [address] [place] [phone] documented in this encounter Visit Diagnoses Diagnosis Type 2 diabetes mellitus with hyperglycemia, with long-term current use of insulin ([facility]) documented in this encounter Care Teams Shot Peening Operator Relationship Specialty Start Date End Date Hill Van MD PCP - General Internal Medicine 08/23/23 04/30/24 Lolis Torres NP [address] [place] [address] PCP - General Family Medicine 05/01/24 Cristiana Slade RN [address] [place] [address] Supervisor Powder [employer] Canning 12/12/23 documented as of this encounter
--- OUTSIDE RECORDS SUMMARY | 2024-07-09 09:54 | XMS_ITS | Encounter Summary ---
Author Organization [employer] Address [address] [facility] [address] 7[address] [place] [address] Care Team Providers Care Manager Travel Name Role Phone Hill Van MD Primary Care Provider [phone] Cristiana Slade RN Unavailable Lolis Torres NP Primary Care Provider [phone] Encounter Details Date Type Department Care Team (Late st Contact Info) Description 10/06/2023 Orders Only [facility] [address] [place] [address] Provider, Not In System Social History Tobacco Use Types Packs/Day Years [...] Upcoming Encounters Date Type Department Care Team ([facility] st Contact Info) Description 08/07/2024 10:00 AM EDT Office Visit [facility] [address] [place] [phone] Lolis Torres NP [address] [place] [phone] documented as of this encounter Procedures Procedure Name Priority Date/Time Associated Diagnosis Comments DIABETES EYE EXAM Routine 10/05/2023 10:11 AM EDT documented in this encounter Results * Diabetes Eye Exam (10/05/2023 10:11 AM EDT) us Not In System Provider HEALTH MAINTENANCE Final Result documented in this encounter Visit Diagnoses Not on filedocumented in this encounter Care Teams Manager Travel Relationship Specialty Start Date End Date Carral, Hill, MD PCP - General Internal Medicine 08/23/23 04/30/24 Lolis Torres NP [address] [place] [address] PCP - General Family Medicine 05/01/24 Cristiana Slade RN [address] [place] [phone] Book Coverer 12/12/23 documented as of this encounter
--- OUTSIDE RECORDS SUMMARY | 2024-07-09 09:54 | XMS_ITS | Encounter Summary ---
Author Organization [employer] Address [address] [place] [address] Care Team Providers Care Surgery Teacher Name Role Phone Cristiana Slade RN Unavailable Lolis Torres NP Primary Care Provider [phone] Reason for Referral * Consultation (Routine) - Authorized Specialty Diagnoses / Procedures Referred By Contcatina t Referred To Contact Pain Medicine Diagnoses Chronic left-sided low back pain with left-sided sciatica Lolis Torres NP [address] [place] [address] Phone: tel: fax: [facility], [address] [place], [place] Phone: tel: fax: Referral ID Status Reason Start Date Expiration Date Visits Requested Visits Authorized [id number] Authorized Specialty Services Required 06/12/2024 06/12/2025 6 6 Reason for Visit * Reason Comments Follow-up Pt reports going to Physical Therapy x 2 months but the pain is still there. At times it decreases, other times it increases. Tylenol seems to help. Reports that blood sugar has been high in the morning despite eating the same breakfast as usual Encounter Details Date Type Department Care Team ([facility] st Contact Info) Description 06/12/2024 9:20 AM EST Office Visit [facility] [address] [place] [phone] Lolis Torres NP [address] [place] [address] Chronic left-sided low back pain with left-sided sciatica (Primary Dx); Type 2 diabetes mellitus with hyperglycemia, with long-term current use of insulin ([facility]) Social History Tobacco Use Types Packs/Day Years [...] t he electric, gas, oil or water [employer] threatened to shut off services in your [...] PM EST documented as of this encounter Last Filed Vital Signs Vital Sign Reading [...] cm (4' 11.13 ) 06/12/2024 9:[address] Body Mass Index 23.69 06/12/2024 9:40 AM EST documented in this encounter Progress Notes * Lolis Torres NP - 06/12/2024 9:20 AM EST Subjective Patient ID: Neha Ford is a 73 y.o. female who presents for Follow-up (Pt reports going to Physical Therapy x 2 months but the pain is still there. At times it decreases, other times it increases. Tylenol seems to help. Reports that blood sugar has been high in the morning despite eating thesame breakfast as usual). HPI LB Pain with sciatica - Persistent back pain in the left sided sciatic area, despite consistent adherence to physical therapy -worsens upon standing and changing positions in bed. - Pain disrupts sleep - Pain sometimes alleviated by exercise and stretching, but persists. - Taking Tylenol 1000 mg in the morning and 1000 mg in the evening for pain management. DM II - Experiencing high blood sugar levels into the 300s after meals followed by lows sometimes dropping to 70. - February A1C was 7.3, down from 10. - per my last note, were considering adding empagliflozin Review of Systems Constitutional: Negative for activity change and appetite change. Musculoskeletal: Positive for back pain and gait problem. Objective Physical Exam Constitutional: Appearance: Normal appearance. Musculoskeletal: General: No swelling, tenderness, deformity or signs of injury. Right lower leg: No edema. Left lower leg: No edema. Skin: General: Skin is warm and dry. Neurological: General: No focal deficit present. Mental Status: She is alert and oriented to person, place, and time. Assessment/Plan Problem List Items Addressed This Visit Type 2 diabetes mellitus with hyperglycemia, with long-term current use of insulin ([facility]) Reports BS fluctuations: highs in the 300s after meals, followed by lows in the 70s. Seeing Cristiana Slade for dietary management Will recheck A1C ahead of DM educator visit, consider trying Jardiance again. F/U in July before planned trip to [facility] Relevant Orders Hemoglobin A1c CBC Comprehensive Metabolic Panel Chronic left-sided low back pain with left-sided sciatica - Primary - Degenerative changes, canal stenosis, and nerve compression noted on imaging. -no improvement with Physical therapy -continue taking Tylenol 1000mg BID -will refer to pain specialist to consider injection therapy Relevant Orders Referral to Pain Medicine documented in this encounter Miscellaneous Notes * Assessment & Plan Note - Cristiana Blackman - 06/12/2024 11:44 AM ESTAssociated Problem(s): Type 2 diabetes mellitus with hyperglycemia, with long-term current use of insulin ([facility]) Reports BS fluctuations: highs in the 300s after meals, followed by lows in the 70s. Seeing Cristiana Slade for dietary management Will recheck A1C ahead of DM educator visit, consider trying Jardiance again. F/U in July before planned trip to the [facility] * Assessment & Plan Note - Cristiana Blackman - 06/12/2024 11:40 AM ESTAssociated Problem(s): Chronic left-sided low back pain with left-sided sciatica - Degenerative changes, canal stenosis, and nerve compression noted on imaging. -no improvement with Physical therapy -continue taking Tylenol 1000mg BID -will refer to pain specialist to consider injection therapy documented in this encounter Plan of Treatment Upcoming Encounters Date Type Department Care Team (Late st Contact Info) Description 08/07/2024 10:00 AM EDT Office Visit [facility] [address] [place] [phone] Lolis Torres NP [address] [place] [address] Scheduled Referrals Name Type Priority Associated Diagnoses Orde r Schedule Referral to Pain Medicine Outpatient Referral Routine Chronic left-sided low back pain with left-sided sciatica Expected: 06/12/2024 (Approximate), Expires: 06/12/2025 documented as of this encounter Procedures Procedure Name Priority Date/Time Associated Diagnosis Comments CBC Routine 06/21/2024 12:00 AM EST Type 2 diabetes mellitus with hyperglycemia, with long-term current use of insulin ([facility]) HEMOGLOBIN A1C Routine 06/21/2024 12:00 AM EST Type 2 diabetes mellitus with hyperglycemia, with long-term current use of insulin ([facility]) COMPREHENSIVE METABOLIC PANEL Routine 06/21/2024 12:00 AM EST Type 2 diabetes mellitus with hyperglycemia, with long-term current use of insulin ([facility]) documented in this encounter Results * (ABNORMAL) Comprehensive Metabolic Panel (06/21/2024 12:00 AM EST) Glucose 143(H) 65 - 99 mg/dL [facility] Comment: ? Fasting reference interval For someone without known diabetes, a glucose value >125 mg/dL indicates that they may have diabetes and this should be confirmed with a follow-up test. Urea Nitrogen (BUN) 14 7 - 25 mg/dL [facility] Creatinine, Serum 0.61 0.60 - 1.00 mg/dL [facility] eGFR 94 > OR = 60 mL/min/1. 73m2 [facility] BUN/Creatinine Ratio SEE NOTE: 6 - 22 (calc) [facility] Comment: ?? Not Reported: BUN and Creatinine are within ?? reference range. ? Sodium 139 135 - 146 mmol/L [facility] Potassium 4.6 3.5 - 5.3 mmol/L [facility] Chloride 101 98 - 110 mmol/L [facility] Carbon Dioxide 32 20 - 32 mmol/L [facility] Calcium 10.0 8.6 - 10.4 mg/dL [facility] Protein, Total 7.2 6.1 - 8.1 g/dL [facility] Albumin 4.5 3.6 - 5.1 g/dL [facility] Globulin 2.7 1.9 - 3.7 g/dL (calc) [facility] Albumin/Globuli n Ratio 1.7 1.0 - 2.5 (calc) [facility] Bilirubin, Total 0.7 0.2 - 1.2 mg/dL [facility] Alkaline Phosphatase 51 37 - 153 U/L [facility] AST 18 10 - 35 U/L [facility] ALT 13 6 - 29 U/L [facility] Blood Venous blood specimen / Unknown 06/21/2024 06/22/2024 12:26 AM EST us Lolis Torres PIPE JOINTS SUPERVISOR LAB BLOOD ORDERABLES Final Resul t [facility] [address], [place] [address] [email or web address] [address] [place] [address] * (ABNORMAL) CBC (06/21/2024 12:00 AM EST) White Blood Cell Count 4.9 3.8 - 10.8 Thousand/ uL [facility] Red Blood Cell Count 4.62 3.80 - 5.10 Million/u L [facility] Hemoglobin 13.1 11.7 - 15.5 g/dL [facility] Hematocrit 41.4 35.0 - 45.0 % [facility] MCV 89.6 80.0 - 100.0 fL [facility] MCH 28.4 27.0 - 33.0 pg [facility] MCHC 31.6(L) 32.0 - 36.0 g/dL [facility] Comment: For adults, a slight decrease in the calculated MCHC value (in the range of 30 to 32 g/dL) is most likely not clinically significant; however, it should be interpreted with caution in correlation with other red cell parameters and the patient's clinical condition. RDW 13.2 11.0 - 15.0 % [facility] Platelet Count 268 140 - 400 Thousand/ uL [facility] MPV 9.8 7.5 - 12.5 fL [facility] Blood Venous blood specimen / Unknown 06/21/2024 06/22/2024 12:26 AM EST Lolis Torres NP LAB BLOOD ORDERABLES Final Resul t [facility] [address], [place] [address] [facility] [address] [place] [address] * (ABNORMAL) Hemoglobin A1c (06/21/2024 12:00 AM EST) Hemoglobin A1c 7.5(H) <5.7 % of total Hgb [facility] Comment: For someone without known diabetes, a [...] BLOOD ORDERABLES Final Resul t [facility] [address], [place] [address] [facility] [address] [place] [address] documented in this encounter Visit Diagnoses Diagnosis Chronic left-sided low back pain with left-sided sciatica- Primary Type 2 diabetes mellitus with hyperglycemia, with long-term current use of insulin ([facility]) documented in this encounter Care Teams Surgery Teacher Relationship Specialty Start Date End Date Lolis Torres NP [address] [place] [address] PCP - General Family Medicine 05/01/24 Cristiana Slade RN [address] [place] [address] Marine Safety Officer 12/12/23 documented as of this encounter
--- OUTSIDE RECORDS SUMMARY | 2024-07-09 09:54 | XMS_ITS | Encounter Summary ---
Author Organization [employer] Address [address] [facility] 7 [place] [address] Care Team Providers Care Undercar Specialist Name Role Phone Cristiana Slade RN Unavailable Lolis Torres NP Primary Care Provider [phone] Reason for Visit * Reason Comments Med Refill Encounter Details Date Type Department Care Team ([facility] st Contact Info) Description 07/07/2024 Refill [facility] [address] [place] [phone] Hill Van MD [address] [place] [phone] Primary hypertension Social History Tobacco Use Types Packs/Day Years [...] the past 12 months, has t he [employer], gas, oil or water company threatened to [...] encounter Miscellaneous Notes * Telephone Encounter - Tia Chavis - 07/09/2024 8:38 AM EST PCP: Lolis Torres NP Last in-person office visit: 06/12/2024 Lolis Torres NP Lab Results Component Value Date BUN 14 06/21/2024 CREATININE 0.61 06/21/2024 EGFRCREATINI 94 09/06/2022 HGBA1C 7.5 (H) 06/21/2024 K 4.6 06/21/2024 TSH 1.92 09/06/2022 Assessment: [x] Protocol passed [] Lab due [] Appointment due Plan: [x] Please refill for 90 days [] Lab [] BMP [] TSH [] A1C [] Appointment due: Future Appointments Date Time Provider Department Center 08/07/2024 10:00 AM Lolis Torres NP [facility] Comments: documented in this encounter Plan of Treatment Upcoming Encounters Date Type Department Care Team (Late st Contact Info) Description 08/07/2024 10:00 AM EDT Office Visit [facility] [address] [place] [phone] Lolis Torres NP [address] [place] [address] documented as of this encounter Visit Diagnoses Diagnosis Primary hypertension Unspecified essential hypertension documented in this encounter Care Teams Undercar Specialist Relationship Specialty Start Date End Date Lolis Torres NP [address] [place] [address] PCP - General Family Medicine 05/01/24 Cristiana Slade RN [address] [place] [address] Mill Set Up 12/12/23 documented as of this encounter
--- OUTSIDE RECORDS SUMMARY | 2024-07-09 09:54 | XMS_ITS | Encounter Summary ---
Author Organization [employer] Address [address] [facility] 7t [place] [address] Care Team Providers Care Keeler Polygraph Operator Name Role Phone Hill Van MD Primary Care Provider [phone] Cristiana Slade RN Unavailable Lolis Torres NP Primary Care Provider [phone] Encounter Details Date Type Department Care Team (Late st Contact Info) Description 09/20/[address] [phone] Hill Van MD [address] [place] [address] Social History Tobacco Use Types Packs/Day Years [...] the past 12 months, has t he [employer], gas, oil or water company threatened to [...] encounter Miscellaneous Notes * Telephone Encounter - Magan Castillo - 09/20/2023 4:05 PM EDT Provider informs they received our referral for physical therapy but they are unable to accept it because it's for the wrist and that would fall under occupational therapy for them, not physical therapy. They're asking us to rewrite the referral so they can see the patient. documented in this encounter Plan of Treatment Upcoming Encounters Date Type Department Care Team (Late st Contact Info) Description 08/07/2024 10:00 AM EDT Office Visit [address] [place] [phone] Lolis Torres NP [address] [place] [address] documented as of this encounter Visit Diagnoses Not on filedocumented in this encounter Care Teams Keeler Polygraph Operator Relationship Specialty Start Date End Date Hill Van MD PCP - General Internal Medicine 08/23/23 04/30/24 Lolis Torres NP [address] [place] [address] PCP - General Family Medicine 05/01/24 Cristiana Slade, RN [address] [place] [address] Gravel Inspector 12/12/23 documented as of this encounter
--- OUTSIDE RECORDS SUMMARY | 2024-07-09 09:54 | XMS_ITS | Encounter Summary ---
Author Organization [employer] Address [address] [place] [address] 7 [place] [address] Care Team Providers Care Charcoal Kiln Burner Name Role Phone Edgard KarimiP Primary Care Provider Unavaila Damien Scales [place] Primary Care Provider U Hill Mitchell MD Primary Care Provider [phone] Hill Van MD Primary Care Provider [phone] Cristiana Slade RN Unavailable Lolis Torres NP Primary Care Provider [phone] Encounter Details Date Type Department Care Team (Late st Contact Info) Description 09/06/[address] [facility] [address] [place] [address] Nathan Flores, [facility] [address] [place] [address] Social History Tobacco Use Types Packs/Day Years Used Date Smoking Tobacco: Never Smokeless Tobacco: Never Alcohol Use Standard Drinks/Week Comments Never 0 (1 standard drink = 0.6 oz pur e alcohol) Depression Answer Date Recorded Patient Health Questionnaire-2 Score 0 09/06/2022 Comments No Sex and Gender Information Value Date Recorded Sex Assigned at Female 07/14/2022 1:02 PM EST Legal Sex Female 12:52 PM EST Gender Identity Female 07/14/2022 1:02 PM EST Sexual Orientation Straight 07/14/2022 1: 02 PM EST COVID-19 Exposure Response Date Recorded In the last 10 days, have yo u been in contact with someone who was confirmed or suspected to have Coronavirus/COVID-19? No / Unsure 09/06/2022 8:21 AM EDT documented as of this encounter Miscellaneous Notes * Telephone Encounter - DARIO Mark - 09/06/2022 3:00 PM EDT OK to put in referral * Telephone Encounter - Serena Lima - 09/06/2022 10:16 AM EDT Pt is requesting referral for custodial engineer. documented in this encounter Plan of Treatment Upcoming Encounters Date Type Department Care Team (Late st Contact Info) Description 08/07/2024 10:00 AM EDT Office Visit [address] [phone] Lolis Torres NP [address] [place] [address] documented as of this encounter Visit Diagnoses Not on filedocumented in this encounter Care Teams Charcoal Kiln Burner Relationship Specialty Start Date End Date Edgard Karimi FNP PCP - General Family Medicine 12/20/22 04/11/23 Damien Wiseman Unassigned PCP - General Family Medicine 04/12/23 07/18/23 Hill Van MD PCP - General Internal Medicine 07/19/23 08/22/23 Hill Van MD PCP - General Internal Medicine 08/23/23 04/30/24 Lolis Torres NP [address] [place] [address] PCP - General Family Medicine 05/01/24 Cristiana Slade, LUIS [address] [place] [address] J2Ee Consultant 12/12/23 documented as of this encounter
--- OUTSIDE RECORDS SUMMARY | 2024-07-09 09:54 | XMS_ITS | Encounter Summary ---
Author Organization [employer] Address [address] [facility] 7t [place] [address] Care Team Providers Care Eyeglass Assembler Name Role Phone Hill Van MD Primary Care Provider [phone] Cristiana Slade RN Unavailable Lolis Torres NP Primary Care Provider [phone] Encounter Details Date Type Department Care Team (Late st Contact Info) Description 10/20/[address] [phone] Hill Van MD [address] [place] [address] Social History Tobacco Use Types Packs/Day [...] the past 12 months, has t he [employer], gas, oil or water company threatened to [...] * Telephone Encounter - Magan Castillo - 10/20/2023 10:51 AM EDT Provider has questions for patient's PCP, she's been seeing the patient and has questions about thetreatment plan we had given her. She's requesting a call back with more information documented in this encounter Plan of Treatment Upcoming Encounters Date Type Department Care Team (Late st Contact Info) Description 08/07/2024 10:00 AM EDT Office Visit [address] [phone] Lolis Torres NP [address] [place] [address] documented as of this encounter Visit Diagnoses Not on filedocumented in this encounter Care Teams Eyeglass Assembler Relationship Specialty Start Date End Date Hill Van MD PCP - General Internal Medicine 08/23/23 04/30/24 Lolis Torres NP [address] [place] [address] PCP - General Family Medicine 05/01/24 Cristiana Slade RN [address] [place] [address] Stock Handler 12/12/23 documented as of this encounter
--- OUTSIDE RECORDS SUMMARY | 2024-07-09 09:54 | XMS_ITS | Encounter Summary ---
Author Organization [employer] Address [address] [place] [address] 7 [place] [address] Care Team Providers Care Hyster Driver Name Role Phone Edgard Karimi Primary Care Provider Unavaila Damien Scales [place] Primary Care Provider U Hill Mitchell MD Primary Care Provider [phone] Hill Van MD Primary Care Provider [phone] Cristiana Slade RN Unavailable Lolis Torres NP Primary Care Provider [phone] Encounter Details Date Type Department Care Team (Late st Contact Info) Description 09/28/2022 Telephone [facility] [address] [facility] [address] [place] [address] Marielena Kline FNP [address] [place] [address] Social History Tobacco Use Types Packs/Day Years [...] suspected to have Coronavirus/COVID-19? No / Unsure 09/23/2022 8:44 AM EDT documented as of this encounter Plan of Treatment Upcoming Encounters Date Type Department Care Team (Late st Contact Info) Description 08/07/2024 10:00 AM EDT Office Visit [facility] [address] [place] [phone] Lolis Torres, ALICJA [address] [place] [address] documented as of this encounter Visit Diagnoses Not on filedocumented in this encounter Care Teams Hyster Driver Relationship Specialty Start Date End Date Edgard Karimi FNP PCP - General Family Medicine 12/20/22 04/11/23 Damien Wiseman Unassigned PCP - General Family Medicine 04/12/23 07/18/23 Hill Van MD PCP - General Internal Medicine 07/19/23 08/22/23 Hill Van MD PCP - General Internal Medicine 08/23/23 04/30/24 Lolis Torres NP [address] [place] [address] PCP - General Family Medicine 05/01/24 Cristiana Slade, LUIS [address] [place] [address] Deboner 12/12/23 documented as of this encounter
== END 2024-07-09 10:09 | disposition home or self-care (01) ==
PROVIDERS: PCP Nurse Practitioner Family; Visit Provider Anesthesiology
DX: M47.816 Spondylosis without myelopathy or radiculopathy, lumbar region (principal); M51.369 Other intervertebral disc degeneration, lumbar region without mention of lumbar back pain or lower extremity pain; G89.4 Chronic pain syndrome; M54.16 Radiculopathy, lumbar region
CPT/HCPCS: 99204

== ENCOUNTER → 2024-07-09 09:15 | Outpatient (BNVA) | payer MEDICARE, SELFPAY | PROVIDERS: PCP Nurse Practitioner Family; Visit Provider Anesthesiology | DX: M51.369 Other intervertebral disc degeneration, lumbar region without mention of lumbar back pain or lower extremity pain (principal); M54.16 Radiculopathy, lumbar region; G89.4 Chronic pain syndrome; M47.816 Spondylosis without myelopathy or radiculopathy, lumbar region | CPT/HCPCS: 99202 ==